=== PATIENT | female | born 1950 | race Caucasian/White ===

== ENCOUNTER 2017-04-16 11:48 | Emergency (ER) | payer OTHER ==
[~2017-04-16] VITALS: Ht 162.6 cm; Wt 65.7 kg
[2017-04-16 12:42] VITALS: BP 118/75
[2017-04-16 14:13] LABS: HEMATOCRIT 37.5 % (36.0-46.0); HEMOGLOBIN 12.6 G/DL (11.9-15.5); MCH 31.5 PG (29.0-34.0); MCHC 33.6 G/DL (30.0-36.0); MCV 93.8 FL (83-99); PLATELET COUNT 213 K/uL (156-360); RBC DIS.WIDTH-CV 12.7 % (11.8-14.6); RBC DIS.WIDTH-SD 44.2 % (39-53); WHITE BLOOD COUNT 7.2 K/uL (4.1-10.2)
[2017-04-16 14:20] LABS: ALBUMIN 3.8 g/dL (3.2-4.8); CHLORIDE 111 mEq/L (99-109); POTASSIUM 3.9 mEq/L (3.7-5.4); SODIUM 142 mEq/L (136-147)
[2017-04-16 14:22] LABS: GLUCOSE 101 mg/dL (70-99); TOTAL PROTEIN 6.5 g/dL (6.4-8.3)
[2017-04-16 14:24] LABS: TOTAL BILIRUBIN 0.2 mg/dL (0.0-1.0)
[2017-04-16 14:26] LABS: ALKALINE PHOSPHATASE 76 IU/L (3-129); CREATININE 0.8 mg/dL (0.6-1.3); GFR ESTIMATE (CALCULATED) > 59 mL/min/
[2017-04-16 14:27] LABS: UREA NITROGEN (BUN) 18 mg/dL (9-23)
[2017-04-16 14:28] LABS: AST (GOT) 18 IU/L (2-34); DIRECT BILIRUBIN 0.1 mg/dL (0.0-0.3)
[2017-04-16 14:29] LABS: ALT (GPT) 12 IU/L (3-49); LIPASE 34 U/L (1.0-51.0)
[2017-04-16] MEDS ORDERED: ZOFRAN ODT4 MG PO (14:35)
[2017-04-16] MEDS ORDERED: PEPCID20 MG PO (14:35)
[2017-04-16] MEDS ORDERED: MOBIC7.5 MG PO (14:35)
== END 2017-04-16 15:23 | disposition home or self-care (01) ==
LOC: EME 11:48
DX: I88.0 Nonspecific mesenteric lymphadenitis (principal); R10.13 Epigastric pain; I10 Essential (primary) hypertension; Z90.49 Acquired absence of other specified parts of digestive tract; Z87.891 Personal history of nicotine dependence; Z88.5 Allergy status to narcotic agent
CPT/HCPCS: 74176; 80053; 81003; 82248; 83690; 85027; 99281; 99284